=== PATIENT | female | born 1990 | race Caucasian/White ===

== ENCOUNTER → 2021-05-27 | Outpatient (CLI) | payer BC ==
--- NOTE | 2021-05-27 10:27 | Diagnostic Imaging Report ---
INDICATION: patient, survey. TECHNIQUE: Multiple real-time grayscale images were obtained over the gravid uterus. COMPARISON: None during this . FINDINGS: A single live intrauterine fetus is seen measuring 20 weeks 4 days in size by composite measurements with sonographic EDC of 10/10/2021. The fetus is in cephalic presentation. Placenta is anterior with no evidence of previa. Amniotic fluid is qualitatively normal. heart rate is 138 BPM. Cervical length was 4.1 cm. The distance from the internal cervical os to the placental tip was 5.4 cm. Maternal adnexa were not well visualized. No free fluid was seen. survey shows mild prominence of the renal pelves which each measured between 3 to 4 mm. bladder appeared normal. stomach and spine appear normal. Three-vessel cord and cord insertion were normal. Four-chamber heart view was unremarkable. Intracranial structures and intracranial ventricles are normal. Biometrical measurements are as follows: Biparietal 4.93 cm, age 21 weeks 0 days. Head circumference 17.86 cm, age 20 weeks 3 days. Abdominal circumference 15.14 cm, age 20 weeks 3 days. Femur length 3.20 cm, age 20 weeks 4 days. Sonographic estimate age: 20 weeks 4 days. Sonographic estimated date of delivery: 10/10/2021. Estimated Weight: 340 gm (+/- 50 gm). LMP percentile: 34%. heart rate: 138 beats per minute. number: 1 of 1. IMPRESSION: Single live intrauterine fetus measuring 20 weeks 4 days in size. There is mild prominence of the renal pelves on both sides, consider follow-up as clinically warranted. There were no other abnormal findings. Dictated by: Dictated on workstation # [id number]
== END ==
LOC: RAD FS 07:57
PROVIDERS: ATTEND Nurse Practitioner Women's Health
DX: Z34.02 Encounter for supervision of normal first pregnancy, second trimester (principal); Z3A.20 20 weeks gestation of pregnancy
CPT/HCPCS: 76805